=== PATIENT | female | born 1960 | race Caucasian/White ===

== ENCOUNTER 2019-07-13 11:01 | Outpatient (CLI) | payer BC ==
--- NOTE | 2019-07-13 11:41 | ULT ---
ULTRASOUND ABDOMEN COMPLETE: DATE: 07/13/2019. HISTORY: A 58-year-old female with generalized abdominal pain. FINDINGS: The gallbladder has normal wall thickness and has no evidence of gallstones or sludge. The hepatic e chogenicity is normal. The kidneys have normal echogenicity, and there is no hydronephrosis. There is no splenomegaly. There is no abdominal aortic aneurysm. No free fluid is identified. The inferi or vena cava is visualized. The pancreas is visualized, although ultrasound is relatively insensitiv e for pancreatic pathology compared to CT and MRI. There is no biliary dilation. The common duct ca liber is 3 mm. There is a 1.5 cm cyst at the peripheral margin of the left lobe of the liver. IMPRESSION: 1. Incidental finding of hepatic cyst. 2. Otherwise, negative. jn [] POS: [facility]
== END 2019-07-13 11:02 | disposition home or self-care (01) ==
LOC: SCSULT 11:01
PROVIDERS: ATTEND Family Medicine
DX: R10.9 Unspecified abdominal pain (principal); K76.89 Other specified diseases of liver
CPT/HCPCS: 76700